=== PATIENT | male | born 1975 ===

== ENCOUNTER 2019-06-10 09:54 | Emergency (ER) | payer SELFPAY ==
[~2019-06-10] VITALS: Ht 154.9 cm; Wt 81.0 kg
--- NOTE | 2019-06-10 11:15 | Diagnostic Imaging Report ---
INDICATION: Right shoulder pain for two days. No known injury. COMPARISON: Right shoulder radiographs performed concurrently. TECHNIQUE: Two views of the right humerus were obtained. FINDINGS: No fracture or focal osseous lesion. No periosteal reaction. The elbow and shoulder are normal in alignment. IMPRESSION: Normal right humerus radiographs. Dictated by: Dictated on workstation # [id number]
--- NOTE | 2019-06-10 11:17 | Diagnostic Imaging Report ---
INDICATION: Right shoulder pain. COMPARISON: Right humerus radiographs performed concurrently. TECHNIQUE: Three views of the right shoulder were obtained. FINDINGS: Glenohumeral and acromioclavicular joints are normal in alignment. Subacromial space is preserved. No fracture. No abnormal soft tissue mineralizations. IMPRESSION: Normal right shoulder radiographs. Dictated by: Dictated on workstation # [id number]
[2019-06-10] MEDS ORDERED: CYCL10TA9 PO (11:32)
[2019-06-10] MEDS ORDERED: MELO15TA14 PO (11:32)
--- NOTE | 2019-06-10 11:32 | ED Upper Extremity ---
General Chief Complaint: Upper Extremity Stated Complaint: R ARM INJ Nursing Triage Note: PT C/O PAIN IN BONE OF RIGHT ARM, STARTED 2 WEEKS AGO BUT HAS BEEN INTENSE PAIN X2 DAYS. Nursing Sepsis Screen: No Definite Risk Source: patient (PT SPEAKS [place] [place]) History of Present Illness Date Seen by Provider: Jun 10, 2019 Time Seen by Provider: 10:47 Initial Comments PT ARRIVES VIA POV FROM HOME C/O RIGHT UPPER ARM PAIN FOR THE LAST 2 WEEKS, WORSE FOR THE LAST 2 DAYS NO KNOWN INJURY OR UNUSUAL ACTIVITY NO PRIOR PROBLEMS OR INJURIES TO THIS ARM NO PARESTHESIAS OR MOTOR DEFICITS PT IS RIGHT HANDED PCP: NONE Allergies and Home Medications Allergies Coded Allergies: No Known Drug Allergies (Unverified , 06/10/19) Home Medications Cyclobenzaprine HCl 10 Mg Tablet, 10 MG PO Q8H Prescribed by: KENA KIMBALL on 06/10/19 1132 Meloxicam 15 Mg Tablet, 15 MG PO DAILY Prescribed by: KENA KIMBALL on 06/10/19 1132 Patient Home Medication List Home Medication List Reviewed: Yes Review of Systems Constitutional: no symptoms reported Respiratory: no symptoms reported; No short of breath Cardiovascular: no symptoms reported; No chest pain Gastrointestinal: see HPI Musculoskeletal: see HPI; No back pain; muscle pain; No neck pain Skin: no symptoms reported Psychiatric/Neurological: No Symptoms Reported; Denies Numbness, Denies Paresthesia, Denies Tingling, Denies Weakness Past Mycwchn-[id number] Hx Past Med/Social Hx: Reviewed and Corrections made Patient Social History Alcohol Use: Denies Use Recreational Drug Use: No Smoking Status: Light Tobacco Smoker Type Used: Cigarettes 2nd Hand Smoke Exposure: No Recent Foreign Travel: No Contact w/Someone Who Travel: No Recent Infectious Disease Expo: No Recent Hopitalizations: No Physical Abuse: No Sexual Abuse: No Mistreated: No Fear: No Seasonal Allergies Seasonal Allergies: No Past Medical History Surgeries: Yes Orthopedic Respiratory: No Cardiac: No Neurological: No Genitourinary: No Gastrointestinal: No Musculoskeletal: No Endocrine: No HEENT: No Cancer: No Psychosocial: No Integumentary: No Blood Disorders: No Physical Exam Vital Signs Vital Signs - First Documented 06/10/19 10:29 Temp 36.6 Pulse 81 Resp 18 B/P (MAP) 134/83 (100) Pulse Ox 97 O2 Delivery Room Air Capillary Refill : Less Than 3 Seconds Height, Weight, BMI Height: '" Weight: lbs. oz. kg; 33.00 BMI Method: General Appearance: WD/WN, no apparent distress Neck: non-tender, full range of motion, supple, normal inspection Cardiovascular: normal peripheral pulses, regular rate, rhythm, no edema, no JVD, no murmur Respiratory: chest non-tender, normal breath sounds, no respiratory distress, no accessory muscle use Back: normal inspection, no CVA tenderness, no vertebral tenderness Shoulder: No asymmetry; bone tenderness; No deformity, No ecchymosis; limited ROM, pain, soft tissue tenderness (TENDERNESS TO RIGHT MID AND POSTERIOR HUMERUS/BICEPS/TRICEPS AREA. TENDERNESS TO RIGHT ANTERIOR SHOULDER/BICEPS TENDON AREA. LIMITED ROM DUE TO PAIN. DISTAL MOTOR/SENSORY/VASCULAR INTACT. ); No swelling Elbow/Forearm: normal inspection, non-tender, no evidence of injury, normal ROM Wrist: Yes normal inspection, Yes non-tender, Yes no evidence of injury, Yes normal ROM Hand: normal inspection, non-tender, no evidence of injury, normal ROM Neurologic/Tendon: normal sensation, normal motor functions, normal tendon functions Neurologic/Psychiatric: dramatic director II-XII nml as tested, no motor/sensory deficits, alert, normal mood/affect, oriented x 3 Skin: normal color, warm/dry; No ecchymosis, No rash Procedures/Interventions Splinting and Joint Reduction : Arm Sling: [place] Progress/Results/Core Measures Results/Orders My Orders Orders - KENA KIMBALL DO Shoulder, Right, 3 Views (06/10/19 10:51) Humerus, Right, 2 Views (06/10/19 10:51) [facility]/Other Supplies Order (06/10/19 11:29) Vital Signs/I&O 06/10/19 10:29 Temp 36.6 Pulse 81 Resp 18 B/P (MAP) 134/83 (100) Pulse Ox 97 O2 Delivery Room Air Blood Pressure Mean: 100 Diagnostic Imaging Comments XRAYS RIGHT SHOULDER AND HUMERUS--NO ACUTE PROCESS, PER RADIOLOGIST REPORT AT 1128 Reviewed: Reviewed by Me Departure Impression Primary Impression: RIGHT SHOULDER AND UPPER ARM PAIN Disposition: 01 HOME, SELF-CARE Condition: Stable Departure-Patient Inst. Referrals: MYRIAM PERKINS MD Patient Instructions: How to Use a Shoulder Sling, Muscle Strain (DC) Add. Discharge Instructions: WEAR SLING FOR COMFORT ALTERNATE ICE AND HEAT TO SORE AREA AT 20 MINUTE INTERVALS FOLLOW UP WITH DR. PERKINS OR DR OF JAKE NEXT WEEK FOR FURTHER CARE All discharge instructions reviewed with patient and/or family. Voiced understanding. Scripts Cyclobenzaprine HCl (Cyclobenzaprine HCl) 10 Mg Tablet 10 MG PO Q8H, #15 TAB Prov: KENA KIMBALL DO 06/10/19 Meloxicam (Mobic) 15 Mg Tablet 15 MG PO DAILY, #10 TAB Prov: KENA KIMBALL DO 06/10/19 KENA KIMBALL DO Jun 10, 2019 11:32
[2019-06-10 11:57] VITALS: BP 114/83
== END 2019-06-10 11:55 | disposition home or self-care (01) ==
LOC: ER 09:55
DX: M25.511 Pain in right shoulder (principal); M79.621 Pain in right upper arm
CPT/HCPCS: 73030; 73060